=== PATIENT | male | born 1980 | race Caucasian/White ===

== ENCOUNTER 2021-08-08 08:16 | Emergency (ER) | payer BC, OTHER ==
--- NOTE | 2021-08-08 09:07 | EDM.PDOC ---
ED HPI GENERAL MEDICAL PROBLEM - General Chief Complaint: Gastrointestinal Problem Stated Complaint: COVID SYMPTOMS Time Seen by Provider: 08/08/21 08:45 Source of Information: Reports: Patient, RN Notes Reviewed History Limitations: Reports: No Limitations - History of Present Illness INITIAL COMMENTS - FREE TEXT/NARRATIVE: 41-year-old gentleman presents emergency department day complaint of nausea and vomiting fevers sore throat concerned about Covid, his spouse is recently diagnosed with Covid he has had symptoms for approximately 7 days. He is not vaccinated Headache Pain Score (Numeric/FACES): 2 - Related Data Allergies Allergy/AdvReac Type Severity Reaction Status Date / Time No Known Allergies Allergy Verified 08/08/21 08:34 Home Meds: Home Meds NK [No Known Home Meds] 08/08/21 [History] Past Medical History HEENT History: Reports: Impaired Vision - Past Surgical History HEENT Surgical History: Reports: Other (See Below) Other HEENT Surgeries/Procedures: wisdom teeth extraction GI Surgical History: Reports: Appendectomy Social & Family History - Tobacco Use Tobacco Use Status *Q: Never Tobacco User Second Hand Smoke Exposure: No - Caffeine Use Caffeine Use: Reports: Soda - Recreational Drug Use Recreational Drug Use: No ED ROS GENERAL - Review of Systems Review Of Systems: See Below Constitutional: Reports: Fever, Chills, Weakness, Fatigue HEENT: Reports: No Symptoms Respiratory: Reports: No Symptoms Cardiovascular: Reports: No Symptoms GI/Abdominal: Reports: Nausea, Vomiting. Denies: Abdominal Pain ED EXAM, GENERAL - Physical Exam Exam: See Below Exam Limited By: No Limitations General Appearance: Alert, WD/WN, No Apparent Distress Respiratory/Chest: No Respiratory Distress, Lungs Clear, Normal Breath Sounds, No Accessory Muscle Use, Chest Non-Tender Cardiovascular: Regular Rate, Rhythm, No Murmur Course - Vital Signs Last Recorded V/S: Last Vital Signs Temp 97.4 F 08/08/21 08:35 Pulse 97 08/08/21 08:35 Resp 16 08/08/21 08:35 BP 121/84 08/08/21 08:35 Pulse Ox 96 08/08/21 08:35 - Orders/Labs/Meds Labs: Laboratory Tests 08/08/21 Range/Units 08:29 SARS CoV-2 RNA Rapid SACHIN Positive H Departure - Departure Time of Disposition: 09:06 Disposition: Home, Self-Care 01 Condition: Fair Clinical Impression: COVID-19 - Discharge Information Instructions: COVID-19 Frequently Asked Questions, 10 Things You Can Do to Manage Your COVID-19 Symptoms at Home - [facility] (06/01/2020) Referrals: PCP,None [Primary Care Provider] - Additional Instructions: Continue symptomatic care, call or return to the emergency department worsening symptoms Sepsis Event Note (ED) - Focused Exam Vital Signs: Vital Signs Temp Pulse Resp BP Pulse Ox 08/08/21 08:35 97.4 F 97 16 121/84 96 - Assessment/Plan Plan: Assessment Acuity = acute Site and laterality = viral syndrome Etiology = COVID-19 Manifestations = fever, nausea vomiting Location of injury = Home Lab values = positive for COVID-19 Plan Did discuss options with him elected to proceed with monoclonal antibody therapy today and then plan for discharged home This note was dictated using [employer] voice recognition software please call with any questions on syntax or grammar.
== END 2021-08-08 09:57 | disposition home or self-care (01) ==
LOC: JP.ED 08:16
DX: U07.1 COVID-19 (principal)
CPT/HCPCS: 99284; U0002